=== PATIENT | male | born 1980 | race Caucasian/White ===

== ENCOUNTER 2017-02-08 14:15 | Emergency (ER) | payer OTHER ==
--- NOTE | ~2017-02-08 | CR156 ---
[facility]. [facility] A Service of [facility] & [facility] RADIOLOGY TEXT RESULTS PATIENT: FANTA DUNBAR LOCATION: SED : 84 UNIT #: [id number] AGE: [address]: Iris Leblanc SEX: M ORDER DR: [id number] [address] [address] [id number] E MR#: [id number] Acc #: [id number] NAME: FANTA DUNBAR : 1980 SEX: M STUDY DATE/TIME: 02/08/2017 14:32 UNIT: SED ROOM: STUDY DESCRIPTION: CR Humerus Min 2 View Lt Attending Physician: Iris Leblanc Pa-C Ordering Physician: Physician Non-Staff Primary Care Physician: Primary Care Physician No MEDICAL IMAGING REPORT This report is preliminary unless electronic signature is present. EXAM Left humerus, 2 views, 02/08/2017 HISTORY Left humerus pain, redness and swelling posteriorly and distally for 4 days. FINDINGS There is no evidence of fracture, dislocation, or radiopaque foreign body. No focal bone lesions are seen. IMPRESSION Normal humerus. Dictated by... Cory Montemayor M.D. THIS IS AN ELECTRONICALLY VERIFIED REPORT Cory Montemayor M.D. at 02/09/2017 10:48 AM JOSE/satish TD: 02/08/2017 22:15 JOB #: [id number] MEDICAL IMAGING REPORT
== END 2017-02-08 15:32 | disposition home or self-care (01) ==
LOC: SED 14:15
DX: L02.414 Cutaneous abscess of left upper limb (principal); Z23 Encounter for immunization; F17.200 Nicotine dependence, unspecified, uncomplicated
CPT/HCPCS: 10060; 73060; 90471; 90715; 99283